=== PATIENT | male | born 1965 | race Caucasian/White ===

== ENCOUNTER 2016-05-12 07:49 | Inpatient (IN) | payer OTHER ==
--- NOTE | ~2016-05-12 | CN ---
Consultation Report [facility] [address] [place]. [address] NAME: JAYANT BRADFORD : 67 STATUS : ADM IN PAT#: [id number] AGE: 51 ADM/REG DATE : 05/12/16 MR#: [id number] REPORT SERV DATE: 05/13/16 DICTATED BY: MAU NOWAK DATE: 05/13/16 REPORT STATUS : Draft TRANSCRIBED BY: MODL DATE: 05/13/16 GENERAL SURGERY CONSULT H AND P DATE OF CONSULTATION: 05/12/2016 CHIEF COMPLAINT: GI bleed. HISTORY OF PRESENT ILLNESS: This is a 51-year-old male, who presented today with significant left neck and shoulder pain, and he was also noted by his to have a large bloody bowel movement this morning. The patient underwent a cardiac cath, which was negative. The patient then was consulted and admitted by Medicine for having abnormal liver enzymes and painless jaundice. In cardiac short stay, the patient was noted have a questionable syncopal or seizure episode and found to be postictal and/or altered mental status and hypotensive. He was transferred to the unit. He then began having hematemesis. He was RSI'd secondary to failure to protect airway. GI was consulted and at the time of my presentation, the patient was undergoing the EGD, there was large amount of blood that was seen in the stomach, no clear visualization seemed to be obtained secondary to the large amount of blood and blood clots. CT scan was reviewed and what appeared to be a necrotic pancreatic mass was seen. A CT scan was obtained today with a fistula into the stomach and believed this to be the source of the bleeding. The patient had already received six units of packed red blood cells and is on maximum Levophed and on vasopressin. Of note, looking at the chart back in November, the patient had an MRI and the pancreatic mass is visualized in the body of the pancreas at that time, but it did not appear necrotic. I spoke with the team at bedside to get the history therefore the history is obtained from the chart and from nurses' report and later confirmed by talking with the , mother, and daughter. ALLERGIES: CLARITIN. PAST MEDICAL HISTORY: 1. CVA in 2014 with no significant deficits. 2. DVT in the right lower extremity. 3. Right Achilles tendon rupture. 4. Diabetes. 5. Obstructive sleep apnea. 6. Obesity. 7. Insomnia. 8. Hypertension. 9. Hyperlipidemia. PAST SURGICAL HISTORY: None. SOCIAL HISTORY: No alcohol. No tobacco. No drugs. 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 and lives at home with his . Consultation Report [facility] [address] [place]. [address] NAME: JAYANT BRADFORD : 67 STATUS : ADM IN PAT#: [id number] AGE: 51 ADM/REG DATE : 05/12/16 MR#: [id number] REPORT SERV DATE: 05/13/16 DICTATED BY: MAU NOWAK DATE: 05/13/16 REPORT STATUS : Draft TRANSCRIBED BY: TIM DATE: 05/13/16 FAMILY HISTORY: Significant for coronary artery disease, diabetes. No cancer as mentioned. MEDICATIONS: See MAR. Does include antiplatelet therapy with aspirin. PHYSICAL EXAMINATION: Limited secondary to the patient undergoing procedure at that time. VITAL SIGNS: Temperature 98.0, pulse 70s, blood pressure again on Levophed and vasopressin 80s over 50s, respiratory rate on ventilator 24, and O2 saturations 100% on ventilator. GENERAL: Well-developed, well-nourished, morbidly obese, sedated and intubated white male, appears stated age. GI: Stomach is distended and firm to palpation in left upper quadrant secondary to what I believe is a palpable enlarged stomach, but is soft. NEUROLOGIC: The patient is nonresponsive at this time. LABORATORY DATA: CBC: White blood cell count is 7.2, hematocrit 20.2, platelets of 324. INR 1.4, PTT 28.4. Sodium 138, potassium 4.1, chloride 104, bicarb 27, BUN 12, creatinine 0.99, glucose 157, calcium 8.7, albumin 3.1, total bilirubin 7.1, alkaline phosphatase 565, ALT 265, AST 155. Troponin [place]. CA[place]-9 [place] [address].5. Lactate 6.7. Cortisol 47.7. ABG, pH 7.16, pCO2 of 35, PO2 of , bicarb 12.3, base deficit -15, O2 sats 99% on the ventilator. A CT scan as mentioned in HPI. ASSESSMENT AND PLAN: 1. This is a 51-year-old male with a GI bleed secondary to what was believed to be a pancreatic mass. The patient is in hemorrhagic shock at this time. I spoke with the critical care team at bedside and have recommended that the patient be taken to IR for possible embolization. If embolization is not possible, then we will proceed to the operating room for exploratory laparotomy with procedures indicated to control bleeding. 2. I spoke extensively with mom, [id number], , and daughter the patient's current medical condition and the plan of care that has been laid out. I expressed that the patient has an extremely poor prognosis in light of being in hemorrhagic shock and the nature of where the bleed is coming from. Even with controlling the bleeding source at this time, the patient still has a poor prognosis secondary to the root cause of it being his pancreatic mass is undefined at this time. The risks, benefits, and alternatives were explained to the patient's family. They expressed clear verbal understanding and wished us to proceed forward with aggressive medical care. DICTATED BY: MD TINAA Malcolm/TIM Mau Nowak M.D. Consultation Report [address] [address] NAME: JAYANT BRADFORD : 67 STATUS : ADM IN [facility]#: [id number] AGE: 51 ADM/REG DATE : 05/12/16 MR#: [id number] REPORT SERV DATE: 05/13/16 DICTATED BY: MAU NOWAK DATE: 05/13/16 REPORT STATUS : Draft TRANSCRIBED BY: TIM DATE: 05/13/16 / [id number] CC: Dion Jang M.D.
--- NOTE | ~2016-05-12 | OP ---
Record Of Operation [facility] [address] [address] NAME: JAYANT BRADFORD : 67 STATUS : ADM IN [facility]#: [id number] AGE: 51 ADM/REG DATE : 05/12/16 MR#: [id number] REPORT SERV DATE: 05/12/16 DICTATED BY: ELISA HANSEN DATE: 05/12/16 REPORT STATUS : Draft TRANSCRIBED BY: MODL DATE: 05/12/16 DATE OF PROCEDURE: 05/12/2016 PROCEDURE: Intubation. REASON: Hematemesis. The patient needs intubation for airway protection in preparation for EGD. The patient was pre-oxygenated with 100% oxygen. DESCRIPTION OF PROCEDURE: 20 mg of IV etomidate were given with 130 mg of IV succinylcholine. GlideScope was used for intubation. Vocal cords were somewhat difficult to visualize secondary to copious amount of blood in the posterior pharynx. The patient actually was successfully intubated on the first attempt with an #8 endotracheal tube. CO2 sensor changed appropriate color from blue to yellow and chest x-ray confirmed good placement of the endotracheal tube. /TIM Elisa Hansen M.D. / [id number] CC: Dion Jang M.D.
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
--- NOTE | ~2016-05-12 | DS ---
Discharge Summary [facility] [address] [place]. [address] NAME: JAYANT BRADFORD : 67 STATUS : DIS IN PAT#: [id number] AGE: 51 ADM/REG DATE : 05/12/16 MR#: [id number] REPORT SERV DATE: 06/16/16 DICTATED BY: JAYANT LOPEZ DATE: 06/16/16 REPORT STATUS : Draft TRANSCRIBED BY: MODCris DATE: 06/16/16 ADMISSION DATE: 05/12/2016 DISCHARGE DATE: 05/14/2016 SUMMARY DATE OF : 05/14/2016. DIAGNOSES: 1. Hemorrhagic shock. 2. GI bleed. 3. Pancreatic mass with splenic artery erosion. 4. Lactic acidosis. 5. Acute renal failure. 6. Shock liver. 7. Acute hypoxic respiratory failure. Please see dictated H and P as well as multiple consult notes and progress notes for full patient presentation, history, and hospital course. BRIEF SUMMARY: The patient was a 51-year-old gentleman who initially was admitted with abdominal pain and thought to have ST-elevation myocardial infarction. He underwent cardiac catheterization with clean coronary arteries. Post catheterization, he became unstable and had abdominal CT scan, which showed a large pancreatic mass and he had evidence of GI bleeding. Endoscopy was performed, which again showed pancreatic mass with erosion into the splenic artery. Following stabilization in the ICU, his two-day hospital course was complicated by progressive hemorrhagic shock, lactic acidosis, acute renal failure requiring dialysis, and support with multiple vasopressors as well as intubation for respiratory failure. Given how ill the patient was and his unlikelihood to recover from this acute illness, his family decided to make him a do not resuscitate and remove him from dialysis. They also understood that he likely had a terminal cancer with a new pancreatic mass and this helped play a role in their decision to make him a do not resuscitate. He was made a do not resuscitate on the and later that day, . Family was at bedside grieving appropriately. BETSY/TIM Jayant Lopez MD / [id number] CC: Tammie Steciw, M.D. Discharge Summary [facility] [address] [place]. [address] NAME: JAYANT BRADFORD : 67 STATUS : DIS IN PAT#: [id number] AGE: 51 ADM/REG DATE : 05/12/16 MR#: [id number] REPORT SERV DATE: 06/16/16 DICTATED BY: JAYANT LOPEZ DATE: 06/16/16 REPORT STATUS : Draft TRANSCRIBED BY: MODL DATE: 06/16/16 Daryn Chino Jr.O.
--- NOTE | ~2016-05-12 | CN ---
Consultation Report [facility] [address] [place]. [address] NAME: JAYANT BRADFORD : 67 STATUS : ADM IN PAT#: [id number] AGE: 51 ADM/REG DATE : 05/12/16 MR#: [id number] REPORT SERV DATE: 05/13/16 DICTATED BY: EDILMA SHRESTHA DATE: 05/13/16 REPORT STATUS : Draft TRANSCRIBED BY: MODL DATE: 05/13/16 NEPHROLOGY CONSULTATION DATE OF CONSULTATION: 05/13/2016 REQUESTING PHYSICIAN: Dr. Rush. REASON FOR CONSULTATION: Acute kidney injury. HISTORY OF PRESENT ILLNESS: Mr. Bradford is a 51-year-old white male, who came in yesterday with complaints of shoulder pain. Creatinine was 1.0 on presentation. He underwent an extensive workup in the last 24 hours. He originally went to the medical lab tech instructor, which showed no coronary disease. He developed an upper GI bleed, which was attempted to be scoped, but was inadequate due to ongoing bleeding. He was eventually found to have an eroding pancreatic mass into the splenic artery and is postop day one coil and embolization by Interventional Radiology. He is presently in the CCU on two pressors and is status post eight units of packed red blood cells, four units of FFP, and a six pack of platelets. Today, his creatinine is up to 2.0. He has had 8425 mL of intake with only 550 mL of urine output. He has an ALT of 1353, AST of 2454, and a CA19-9 of 19,182. PAST MEDICAL HISTORY: 1. Hypertension. 2. Hyperlipidemia. 3. Hypothyroidism. 4. History of DVT with an embolic stroke per chart. MEDICATIONS: At home, aspirin, CoQ10, levothyroxine 100 mcg daily, Mobic p.r.n., multivitamin, Percocet, Crestor 10 mg h.s., Diovan 160 mg daily, and HCT 12.5 mg daily. Here in the hospital, he is on Levophed at 12 mcg and vasopressin at 0.4 mcg. FAMILY HISTORY: Could not be obtained due to the patient's current condition. SOCIAL HISTORY: Could not be obtained due to the patient's current condition. REVIEW OF SYSTEMS: Could not be obtained due to the patient's current condition. PHYSICAL EXAMINATION: VITAL SIGNS: Temperature 100, pulse 93, respirations 18, blood pressure 113/53, and 96% saturation on 40% FiO2. GENERAL: He is a critically ill, middle-aged white male, who is sedated on the ventilator with two pressors. He has bright red blood in the NG tube. HEENT: Sclerae without icterus. Conjunctivae not injected. NECK: No JVD. Consultation Report [address] [place]. [address] NAME: JAYANT BRADFORD : 67 STATUS : ADM IN [facility]#: [id number] AGE: 51 ADM/REG DATE : 05/12/16 MR#: [id number] REPORT SERV DATE: 05/13/16 DICTATED BY: EDILMA SHRESTHA DATE: 05/13/16 REPORT STATUS : Draft TRANSCRIBED BY: TIM DATE: 05/13/16 LUNGS: He has diffuse bilateral rhonchi without dyspnea or tachypnea. CARDIAC: Regular rate and rhythm. No rub. ABDOMEN: Obese, soft, distended. EXTREMITIES: Without edema. SKIN: Without rash. He has minimal dark brown urine in the Hodges catheter. NEURO: Deferred. LABORATORY DATA: Sodium 147, potassium 4.7, bicarb 19, anion gap 17, BUN 20, creatinine 2, calcium 7.2, magnesium 1.9, phosphorus 4.6, albumin 2.4, bilirubin 6.0, GFR 38 mL/minute, ALT 1353, AST 2454, ionized calcium 4.10, lactate 6.7. ABG, pH 7.35, PaCO2 of 34, PaO2 of 93. White count 23,600; hemoglobin 10.3; platelets 229,000. No eosinophils on the differential. ASSESSMENT AND PLAN: Mr. Bradford has developed acute kidney injury, which is borderline oliguric in the setting of acute blood loss anemia, shock, anion gap metabolic acidosis, hyperkalemia, anemia, leukocytosis, pancreatic mass with erosion into the splenic artery, postop day one embolization and coiling, respiratory failure, lactic acidosis, elevated CA19 9, and possible DIC. He is presently on two pressors and almost certainly has developed acute tubular necrosis secondary to renal hypoperfusion due to shock physiology. Called the patient's and discussed with her over the phone the need for initiation of CRRT today. She agrees and we will proceed with Vas-Cath placement per Surgery and initiation of continuous renal replacement therapy without citrate because of his elevated LFTs. Dose albumin and hold Mobic and ARB. We will watch for recovery and continue supportive care through the weekend. Thank you for consult. NC/MODL Edilma Shrestha M.D. / [id number] CC: Dion Jang M.D.
--- NOTE | ~2016-05-12 | OP ---
Record Of Operation [facility] [address] [place]. [address] NAME: JAYANT BRADFORD : 67 STATUS : ADM IN [facility]#: [id number] AGE: 51 ADM/REG DATE : 05/12/16 MR#: [id number] REPORT SERV DATE: 05/12/16 DICTATED BY: ÓSCAR CHAMPION DATE: 05/12/16 REPORT STATUS : Draft TRANSCRIBED BY: MODL DATE: 05/12/16 DATE OF PROCEDURE: 05/12/2016 PROCEDURE: EGD that took over one hour. ENDOSCOPIST: Óscar Champion M.D. INDICATION FOR PROCEDURE: The patient is a 51-year-old gentleman, who presents to the hospital with left shoulder pain, thought to might have had an AK. He went to the labor arbitrator, and found that was normal, and he did not get any anticoagulation. After the catheterization, he began to feel sick and threw up bright red blood, he became unresponsive, he became severely hypotensive, and needs an emergent EGD. After obtaining consent from the family, the patient was medicated by Anesthesia. He was already intubated. He was already on Levophed and vasopressin. Then the Olympus GIF-H190 endoscope was passed into the esophagus, where blood and clots were found, these were washed away, and no active bleeding was seen in the esophagus. In the stomach, there was blood and clots in the lower part of the stomach, these were washed away, and no active bleeding was seen. In the duodenum there was some blood and clots, and again these were washed away, and no active bleeding was seen. In the upper part of the stomach, there was a huge clot, and active bright red blood was seen coming from beneath the clots. The clots were attempted to be moved, but after multiple attempts, the site of bleeding could not be found. He continued to have blood coming from the stomach, and Surgery was called, and they requested the Interventional Radiology to do an angiogram, and if they could not stop the bleeding, then they would take him to surgery. The procedure was then terminated. IMPRESSION: The patient has a large clot with blood coming from beneath the clot in the upper stomach. It looks like there may be a mass in the upper stomach underneath the clot, but good look could not be gotten. The bleeding was coming from beneath the large clot in the upper part of the stomach. RECOMMENDATIONS: 1. Follow hemoglobin and hematocrit, transfuse as needed. 2. Proceed to the Interventional Radiology for angiogram. 3. If that is not successful, then he will have surgery to try and stop the bleeding. CONOR/TIM Óscar Champion M.D. / [id number] CC: Dion Jang M.D.
--- NOTE | ~2016-05-12 | CN ---
Consultation Report [facility] [address] [place]. [address] NAME: JAYANT BRADFORD : 67 STATUS : ADM IN PAT#: [id number] AGE: 51 ADM/REG DATE : 05/12/16 MR#: [id number] REPORT SERV DATE: 05/12/16 DICTATED BY: ÓSACR CHAMPION DATE: 05/12/16 REPORT STATUS : Draft TRANSCRIBED BY: MODL DATE: 05/12/16 EMERGENCY CONSULT DATE OF CONSULTATION: 05/12/2016 HISTORY OF PRESENT ILLNESS: The patient is a 51-year-old gentleman who was originally admitted to the hospital earlier today when he began to have severe left shoulder pain which was going up into his neck and down his arm. 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 It was painless, and at that time, he denied any nausea or vomiting. He denied any abdominal pain. He had been noticing his urine getting dark over the last week and was sent to have an evaluation by Dr. Encinas and a scan done, and he was told he had a fatty liver. He had recently injured his shoulders and had twin rotator cuff tears and he was to see Orthopedic Surgery today. However, after the cardiac catheterization, he began to have nausea and then vomiting with hematemesis with clots. He became severely hypotensive and a rapid response was called. He then began to have melena, and by the time of my arrival, he had already been intubated and given 2 units of blood and started on Levophed and vasopressin and his systolic blood pressure was still in the 70s. 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 MEDICATIONS: As outlined on his home medicine sheet and MAR. 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 FAMILY HISTORY: Cannot be gotten by the patient and per the H and P from Dr. Jang, it was noncontributory. REVIEW OF SYSTEMS: Cannot be gotten because he is intubated and sedated. PHYSICAL EXAMINATION: GENERAL: He is a well-developed, well-nourished gentleman, intubated. VITAL SIGNS: Had a temperature of 98.0. His pulse was 98, respirations were 16, and his blood pressure had a systolic of about 70/40. LUNGS: Sounded clear. HEART: Regular rate and rhythm. ABDOMEN: Showed normal bowel sounds. There appeared to be a very hard mass over the upper abdomen. LABORATORY DATA: His hemoglobin was about 6. His sodium was 137, potassium 4.6, and glucose 202. His CBC just prior to the endoscopy, his white count was 7.2, hemoglobin 6.5 down from 10.4 earlier in the morning, earlier in the day hematocrit of 20.2 down from 33.1, MCV 86.7, Consultation Report [place] [id number] [facility] [place]. [address] NAME: JAYANT BRADFORD : 67 STATUS : ADM IN [facility]#: [id number] AGE: 51 ADM/REG DATE : 05/12/16 MR#: [id number] REPORT SERV DATE: 05/12/16 DICTATED BY: ÓSCAR CHAMPION DATE: 05/12/16 REPORT STATUS : Draft TRANSCRIBED BY: MODL DATE: 05/12/16 RDW 14.2, and platelet count of 324,000. ProTime was 17.1 with an INR of 1.4 and PTT was 28.4, both normal. D-dimer was mildly high at 0.57. His sodium from 9 o'clock this morning had a sodium of 138, potassium 4.1, chloride 104, CO2 of 27, BUN 12, creatinine 0.99, glucose 157, calcium 8.7. Total protein 86.4, albumin was 3.1, his total bilirubin was 7.1 with a direct of 5.4, indirect 1.7, alkaline phosphatase of 565, ALT 265, AST 155. CPK of 84, CK-MB less than 0.5. Troponin less than 0.02. CA-19-9 was 91073.5 which is markedly high. He did have a CT scan of the abdomen which revealed no suspicious focal abnormality within the liver and no intrahepatic ductal dilatation. Gallbladder is not well-defined. No calcified stones were seen. The stomach is markedly dilated containing large amount of fluid and areas of gas. Hemorrhagic fluid within the gastric lumen could not be excluded and the stomach could not be adequately distinguished from the adjacent pancreatic tail suggesting a possible abnormality eroding between the pancreas and stomach. The mass within the pancreas on a prior MRI exam, 12/24/2015, cannot be distinguished on this noncontrast CT scan, and there was a mild dilation of the common bile duct. IMPRESSION: This is a 51-year-old gentleman who is now having severe hematemesis and severe upper gastrointestinal bleeding, needs an emergent EGD which will be done now. CONOR/TIM Óscar Champion M.D. / [id number] CC: Dion Jang M.D.
--- NOTE | ~2016-05-12 | HP ---
History And Physical [place] [id number] [place]. [address] NAME: JAYANT BRADFORD : 67 STATUS : ADM IN PAT#: [id number] AGE: 51 ADM/REG DATE : 05/12/16 MR#: [id number] REPORT SERV DATE: 05/12/16 DICTATED BY: DION JANG DATE: 05/12/16 REPORT STATUS : Draft TRANSCRIBED BY: MODL DATE: 05/12/16 DATE OF ADMISSION: 05/12/2016 CRITICAL CARE RESUSCITATION NOTE Rapid response called by nursing staff in cardiac short-stay and I was notified. I arrived at the patient's bedside and found the patient writhing in pain, complaining of left upper quadrant and epigastric pain. He then became very sick and he became very diaphoretic. He became incontinent of urine, and the nurse told me that prior to that he was incontinent of urine and had a staring spell up in the ceiling. This patient could not find a comfortable spot to lay, and we began resuscitate efforts first checking his EKG. His blood pressure was significantly low systolic of around 59 aggressive fluid resuscitation with wide open fluid boluses were done. IV accesses were done. Rapid response team arrived. An I-STAT blood was obtained at that time. On the I-STAT, his pH was 7.36, his pCO2 was in the 40s, his pO2 was 93. He had a bicarb of 13. His sodium and potassium were normal. His hemoglobin had dropped to 8.2, which was 10 prior to that. At that time. Since he was having significant pain, we decided that the patient needed to be moved to the Intensive Care Unit. I called Dr. Tammie Hansen, and Jacobo, Dr. Hansen's nurse, arrived at the bedside. I discussed his care with him, and we decided that he would go to stat CT scan of the abdomen and pelvis. After the stat CT scan of the abdomen and pelvis, the patient was transferred to critical care unit. I reviewed the CT of the abdomen and pelvis and found that there was significant hematogenous collection in the stomach with pancreatic head eroding through the stomach wall. At that time, I once again discussed his care with Jacobo. We had already notified Dr. Baldo Butts . regarding patient's overall condition and then this patient's care was handed off to the customer success director. A total time of about 60 minutes was spent by myself trying to resuscitate this patient and appropriately handing his care over to the customer success director. MAY/TIM Dion Jang M.D. / [id number] CC: Dion Jang M.D. UNKNOWN
--- NOTE | ~2016-05-12 | CN ---
Consultation Report [facility] [address] [place]. [address] NAME: JAYANT BRADFORD : 67 STATUS : ADM IN PAT#: [id number] AGE: 51 ADM/REG DATE : 05/12/16 MR#: [id number] REPORT SERV DATE: 05/12/16 DICTATED BY: ELISA HANSEN DATE: 05/12/16 REPORT STATUS : Draft TRANSCRIBED BY: MODL DATE: 05/12/16 CONSULTATION AND CRITICAL CARE NOTE DATE OF CONSULTATION: 05/12/2016 HISTORY OF PRESENT ILLNESS: This is a 51-year-old patient, I was asked to see by Dr. Jang. The patient presented to the emergency room today complaining of left shoulder pain and has known rotator cuff tear. He was seen by Cardiology and was thought to have a STEMI and taken to the manager cardiac cath. Coronaries were clean. The patient was then supposed to be admitted to the Hospitalist Service, but when Dr. Jang saw the patient in cardiac short-stay, became hypotensive and began complain of excruciating abdominal pain. We were then called to see the patient. The patient required multiple boluses of fluid and finally a pressure was obtaining and was taken for a stat CT scan of the abdomen and pelvis, which showed a distended stomach, and possibly a part of the pancreas that might be eroding into the stomach. The stomach also contained lots of fluid with air thought to possibly be blood. The patient was then taken to the CCU and NG tube was placed, and lot of bright red blood was then suctioned from the stomach by the NG tube. The patient continues to have difficulty with blood pressure and two units of O negative blood was given until the patient could be typed and crossed. IV fluid boluses as well as Albumisol were continued. The patient then was subsequently intubated because of hematemesis and so this was done for airway protection. The patient's then revealed that he did have black and bloody stools on the morning of admission. He had been complaining of left shoulder pain which is a chronic problem for which he has seen orthopedic surgeon. However, he all also was complaining of some abdominal pain and that seems to have been ongoing as well as heartburn. 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 Apparently, this was never followed up. So, currently the patient is in the CCU being evaluated for abdominal pain, as well as markedly increased LFTs, and bilirubin, and marked jaundice, and is in critical condition. ALLERGIES: HE IS ALLERGIC TO CLARITIN. HOME MEDICATIONS: Aspirin, Coenzyme Q10, Synthroid, Mobic, probiotic, Theragran-M, Percocet, Crestor, and Diovan. PAST MEDICAL HISTORY: 1. In addition to as mentioned above. It is significant for a previous stroke in December of 2014, it was an acute left parietal cerebral vascular accident that resulted in some numbness of the right hand that eventually resolved. Right lower extremity superficial thrombophlebitis. History of a tendo-achilles rupture in the right lower extremity for which the patient was treated by Dr. Ginny guaman conservatively. 2. He has a diagnosis of type 2 diabetes mellitus. 3. Obstructive sleep apnea, on CPAP. 4. Obesity. Consultation Report [address] [address] NAME: JAYANT BRADFORD : 67 STATUS : ADM IN [facility]#: [id number] AGE: 51 ADM/REG DATE : 05/12/16 MR#: [id number] REPORT SERV DATE: 05/12/16 DICTATED BY: ELISA HANSEN DATE: 05/12/16 REPORT STATUS : Draft TRANSCRIBED BY: TIM DATE: 05/12/16 5. Insomnia. 6. Hypertension. 7. Hyperlipidemia with hypertriglyceridemia. SOCIAL HISTORY: The patient does not drink alcohol, smoke or use illicit drugs. 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 He is and lives at home with his . FAMILY HISTORY: Significant for coronary artery disease, diabetes, but there is no history of pancreatic or GI cancers. REVIEW OF SYSTEMS: Review of systems was difficult to obtain from the patient, but he denies any weight loss, syncope, blurred vision, diarrhea, decreased appetite, or previous hematemesis. The remainder of a 12-point review of systems is unremarkable. PHYSICAL EXAMINATION: VITAL SIGNS: The patient is obviously jaundiced. His blood pressure ranges from anywhere of 53 systolic to 97 systolic. Respiratory rate is in the high 20s. He is afebrile. Heart rate is 72. GENERAL: The patient is able to move all extremities. SKIN: Cool to touch, but he is not diaphoretic. HEENT: Head is atraumatic and normocephalic. Pupils are equal, round, and reactive to light and accommodation. Extraocular eye movements are intact. Sclerae are icteric. Conjunctivae are pale. Nasal mucosa is within normal limits. Oral mucosa is moist. Tongue is midline. NECK: Supple without JVD, lymphadenopathy, or thyromegaly. RESPIRATORY: Lungs are diminished at the bases with no wheezes. CARDIAC: Reveals a regular rate and rhythm. Tremendous pain on movement of the left shoulder and there is limited range of motion in that arm. ABDOMEN: Actually nondistended and soft. A large liver can be palpated below the right costophrenic angle. There is no significant pain to palpation or rebound. Bowel sounds are present, but diminished. RECTAL/GENITAL: Deferred. EXTREMITIES: Without cyanosis, clubbing, or edema. NEUROLOGIC: Cranial nerves 2 through 12 are grossly intact. Motor and sensory are intact except for limited range of motion in the left arm. LABORATORY AND DIAGNOSTIC DATA: Chest x-ray shows no infiltrates. Most current lab work shows cortisol level 47. Serum drug screen shows an acetaminophen level of 2.8, salicylate is less than 1.7, alcohol less than 10, TSH 1.6, troponin less than 0.02. Amylase 12, lipase 49, AST 112, ALT is 175, alkaline phosphatase 343, total bilirubin is 4.2, magnesium 2.3. Procalcitonin is pending. Lactic acid level 6.7. KUB shows nasogastric tube in the body of the stomach. CBC; white cell count 7.2, hemoglobin 6.5, hematocrit 20, platelet count 324,000. Sodium 138, potassium 4.1, chloride 104, bicarb 27, BUN 12, creatinine 0.99, Consultation Report [address] [address] NAME: JAYANT BRADFORD : 67 STATUS : ADM IN [facility]#: [id number] AGE: 51 ADM/REG DATE : 05/12/16 MR#: [id number] REPORT SERV DATE: 05/12/16 DICTATED BY: ELISA HANSEN DATE: 05/12/16 REPORT STATUS : Draft TRANSCRIBED BY: MODL DATE: 05/12/16 glucose 157. His CA-19-9 is 19,182. EKG did not show any ST-segment elevations or depressions. ASSESSMENT AND PLAN: This is a critically ill 51-year-old, white male, who presents with initially left shoulder pain that then progressed to acute abdominal pain, and now appears to have an erosion of possibly tumor into the stomach, and in acute bleed, and is in hypovolemic hemorrhagic shock. He has required intubation for airway protection and a blood transfusion, volume resuscitation, and pressors. Overall, this patient's diagnosis is extremely guarded. The plan is to continue IV fluid resuscitation. Stabilize the patient. Consult GI Dr. Butts, with whom I have spoken to on the phone, as well as a Dr. Santosh Coates, Surgery. Total time spent with this patient thus far, started at 03:30 p.m. and currently is ongoing at 05:44 p.m. and may very well continue onward, you will need to check my documented note to see exactly how much critical care time will be charged. /JAGUARL Elisa Hansen M.D. / [id number] CC: Dion Jang M.D.
--- NOTE | ~2016-05-12 | OP ---
Record Of Operation [facility] [address] [place]. [address] NAME: JAYANT BRADFORD : 67 STATUS : ADM IN [facility]#: [id number] AGE: 51 ADM/REG DATE : 05/12/16 MR#: [id number] REPORT SERV DATE: 05/13/16 DICTATED BY: SANTOSH JONES JR. DATE: 05/13/16 REPORT STATUS : Draft TRANSCRIBED BY: MODL DATE: 05/13/16 DATE OF PROCEDURE: 05/13/2016 PREOPERATIVE DIAGNOSIS: Acute renal failure. POSTOPERATIVE DIAGNOSIS: Acute renal failure. OPERATION: Left subclavian vein Vas-Cath catheter. SURGEON: Dr. Santosh Jones. HISTORY: This is a 51-year-old white male, admitted to the hospital yesterday with a major GI bleed and hypotension. As a consequence, he shut down his kidneys and his fluid overloaded and needs urgent CRRT. DESCRIPTION OF PROCEDURE: The patient was on a ventilator. The chest was prepped and draped in the usual sterile manner. A long needle was used to find the left subclavian vein underneath the left clavicle. A wire was easily passed. A series of dilators were used to insert a standard Vas-Cath catheter into the left subclavian vein. There was no heinous looking blood easily returned without any hint of arterial pressure. The catheter was irrigated with heparinized saline and sutured in the place. The patient tolerated the procedure well and stayed in his ICU bed in critical condition. There were no intraoperative complications. ESTIMATED BLOOD LOSS: 10 mL. DF/MODL Santosh Jones Jr., M.D. / [id number] CC: Tammie Hansen M.D.
--- NOTE | ~2016-05-12 | PRECARD ---
H&P [facility] [address] [place]. [address] NAME: JAYANT BRADFORD : 67 STATUS : ADM IN [facility]#: [id number] AGE: 51 ADM/REG DATE : 05/12/16 MR#: [id number] REPORT SERV DATE: 05/12/16 DICTATED BY: SARAH CARY DATE: 05/12/16 REPORT STATUS : Draft TRANSCRIBED BY: TIM DATE: 05/12/16 DATE OF ADMISSION: 05/12/2016 HISTORY OF PRESENT ILLNESS: Mr. Jayant Bradford is a 51-year-old gentleman, referred by the emergency room for acute inferior wall myocardial infarction. Mr. Bradford reports a history of stroke. He has a torn rotator cuff on the left shoulder. He awoke this morning with some confusion and discomfort in that left shoulder. He was brought to the emergency room by ambulance. The ambulance team on arrival had done an EKG that demonstrated, perhaps, [address]-elevation in II, III, and aVF with small Q-waves in those leads, the EKG in the emergency room demonstrated normalization. He continues to have left shoulder discomfort that is exacerbated by moving that arm. He does not have marcus chest pain. No orthopnea or PND. No palpitations. The patient reports he was told he had a stroke after a significant blood clot, related to an Achilles tendon tear. I have no records to substantiate that or prior echocardiogram to explain. He does have a history of hypertension. No history of diabetes, hyperlipidemia, or known family history of premature coronary disease. PAST MEDICAL HISTORY: 1. Hypertension. 2. Torn rotator cuff on the left shoulder. 3. Achilles heel rupture previously. 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 MEDICINES: Uncertain. FAMILY HISTORY: No definite family history of premature coronary artery disease. PHYSICAL EXAMINATION: VITAL SIGNS: Blood pressure 130/65. GENERAL: Comfortable, in no acute distress. HEENT: No xanthelasma; lips without cyanosis LUNGS: Clear to auscultation, no wheezes, rales or rhonchi; good breath sounds. COR: No JVD or hepatojugular reflux, no murmurs, rubs or gallops, impulse mid clavicular line without carotid or abdominal bruits; normal S1 and S2. ABDOMEN: Bowel sounds positive, normal activity, without tenderness, masses or hepatosplenomegaly. EXTREMITIES: No edema, cyanosis. SKIN: Normal turgor. MS: Normal muscle strength, without kyphosis/scoliosis. NEURO/PSYCH: Alert and oriented times 4, no apparent anxiety or depression. H&P [address] [address] NAME: JAYANT BRADFORD : 67 STATUS : ADM IN PAT#: [id number] AGE: 51 ADM/REG DATE : 05/12/16 MR#: [id number] REPORT SERV DATE: 05/12/16 DICTATED BY: SARAH CARY DATE: 05/12/16 REPORT STATUS : Draft TRANSCRIBED BY: TIM DATE: 05/12/16 LABORATORY DATA: EKG: Sinus rhythm with nonspecific ST-T wave changes. Prior EKG demonstrated minimal ST-elevation in the inferior leads. ASSESSMENT: Mr. Bradford is a very nice 51-year-old gentleman with left shoulder discomfort. His EKG initially was abnormal. PLAN: I plan to proceed with cardiac catheterization and possible angioplasty. I have discussed the risks, benefits, and alternatives with Mr. Cox. He understands and requests to proceed. LIZBET/TIM Sarah Cary M.D. / [id number]
[~2016-05-12 07:49] MED LIST: ALLEGRA OTC; AMB5 PO; ASAEC PO; CENTRUM TAB1 TAB PO; CINNAMONPO; CO Q-10; FISH OIL; FLONASE NAS; FORTAMET500 MG PO; LOPID6 PO; RED YEAS1 PO; ZESTRIL30 MG PO; ZESTRIL40 MG PO
[2016-05-12] MEDS ORDERED: SYN1 PO (08:01)
[2016-05-12] MEDS ORDERED: PCET PO (08:01)
[2016-05-12] MEDS ORDERED: MOBIC7.5 PO (08:02)
[2016-05-12] MEDS ORDERED: DIOVAN HC1 PO (08:02)
[2016-05-12] MEDS ORDERED: HALF81 PO (08:02)
[2016-05-12] MEDS ORDERED: CRESTOR10 PO (08:02)
[2016-05-12] MEDS ORDERED: THERGRANM PO (08:02)
[2016-05-12] MEDS ORDERED: PROBIOTIC PO (08:03)
[2016-05-12] MEDS ORDERED: CO Q-10100 MG PO (08:03)
[2016-05-12 08:04] LABS: INTERNATIONAL NORMAL RATI 1.1 UNITS (-); PROTIME (NOT ORD) 14.2 SEC (12.0-14.5)
[2016-05-12 08:05] LABS: PARTIAL THROMBO TIME 45.1 SEC (22.5-37.2)
[2016-05-12 08:15] LABS: BUN (BLOOD UREA NITROGEN) 11 MG/DL (6-23); CALCIUM, SERUM 8.6 MG/DL (8.5-10.4); CHEST PAIN PROFILE TAT 0 Hrs 22 Mins; CHLORIDE, SERUM 106 MMOL/L (96-112); CO2 (CARBON DIOXIDE) 22 MMOL/L (24-34); CREATININE 1.07 MG/DL (0.70-1.30); GFR AFRICAN AMERICAN 93 ML/MIN (>=60); GFR NON AFRICAN AMERICAN 81 ML/MIN (>=60); POTASSIUM, SERUM 3.8 MMOL/L (3.5-5.3); SODIUM, SERUM 139 MMOL/L (135-148); TROPONIN I <0.02 NG/ML (<0.05)
[2016-05-12 08:16] LABS: GLUCOSE, SERUM 176 MG/DL (60-99)
[2016-05-12 08:31] LABS: ALBUMIN 3.1 G/DL (3.5-5.0); ALKALINE PHOSPHATASE 552 U/L (45-117); DIRECT BILIRUBIN 4.8 MG/DL (0.0-0.4); INDIRECT BILIRUBIN(NOT ORDER) 1.9 MG/DL (0.1-0.9); SGPT(ALT) 259 U/L (5-65); TOTAL BILIRUBIN 6.7 MG/DL (0-1.2); TOTAL PROTEIN 6.2 G/DL (6.0-8.5)
[2016-05-12 08:32] LABS: SGOT(AST) 158 U/L (5-40)
[2016-05-12 08:45] LABS: CREATININE 0.8 MG/DL (0.70-1.30)
[2016-05-12 09:56] LABS: ALBUMIN 3.1 G/DL (3.5-5.0); BUN (BLOOD UREA NITROGEN) 12 MG/DL (6-23); CALCIUM, SERUM 8.7 MG/DL (8.5-10.4); CHLORIDE, SERUM 104 MMOL/L (96-112); CREATININE 0.99 MG/DL (0.70-1.30); GFR AFRICAN AMERICAN 102 ML/MIN (>=60); GFR NON AFRICAN AMERICAN 88 ML/MIN (>=60); GLUCOSE, SERUM 157 MG/DL (60-99); POTASSIUM, SERUM 4.1 MMOL/L (3.5-5.3); SGOT(AST) 155 U/L (5-40); SGPT(ALT) 265 U/L (5-65); SODIUM, SERUM 138 MMOL/L (135-148); TOTAL BILIRUBIN 7.1 MG/DL (0-1.2); TOTAL PROTEIN 6.4 G/DL (6.0-8.5); TROPONIN I <0.02 NG/ML (<0.05)
[2016-05-12 10:01] LABS: ALKALINE PHOSPHATASE 565 U/L (45-117); CK-MB < 0.5 NG/ML; CO2 (CARBON DIOXIDE) 27 MMOL/L (24-34); CPK 84 U/L (0-200); DIRECT BILIRUBIN 5.4 MG/DL (0.0-0.4); INDIRECT BILIRUBIN(NOT ORDER) 1.7 MG/DL (0.1-0.9)
[2016-05-12 10:43] LABS: BASOPHILS 0.4 %; BASOPHILS ABSOLUTE 0.04 10/3/uL (0.0-0.16); EOSINOPHILS 1.5 %; EOSINOPHILS ABSOLUTE 0.15 10/3/uL (0.0-0.53); ER CBC TAT 2 Hrs 50 Mins; IMMATURE GRANULOCYTES 0.3 %; IMMATURE GRANULOCYTES ABSOLUTE 0.03 10/3/uL (0.0-0.11); LYMPHOCYTES 41.1 %; LYMPHOCYTES ABSOLUTE 3.99 10/3/uL (0.67-4.30); MEAN CORPUSCULAR HEMOGLOB 26.9 pg (26.0-34.0); MEAN CORPUSCULAR VOLUME 85.8 fL (80-100); MEAN PLATELET VOLUME 10.4 fL (9.2-13.0); MONOCYTES 12.5 %; MONOCYTES ABSOLUTE 1.21 10/3/uL (0.21-1.20); NEUTROPHILS 44.2 %; NEUTROPHILS ABSOLUTE 4.28 10/3/uL (2.02-8.40); WHITE BLOOD CELLS 9.7 10/3/uL (4.5-10.5)
[2016-05-12 10:46] LABS: HEMATOCRIT 33.1 % (40.0-51.0); HEMOGLOBIN 10.4 g/dL (13.6-17.8); MANUAL DIFF NO %; MEAN CORPUS HGB CONC 31.4 g/dL (32.0-36.0); PLATELET COUNT 380 10/3/uL (150-400); RED CELL COUNT 3.86 10/6/uL (4.7-6.1)
[2016-05-12 17:02] LABS: BASOPHILS 0.1 %; BASOPHILS ABSOLUTE 0.01 10/3/uL (0.0-0.16); EOSINOPHILS 0.1 %; EOSINOPHILS ABSOLUTE 0.01 10/3/uL (0.0-0.53); IMMATURE GRANULOCYTES 0.4 %; IMMATURE GRANULOCYTES ABSOLUTE 0.03 10/3/uL (0.0-0.11); LYMPHOCYTES ABSOLUTE 2.68 10/3/uL (0.67-4.30); MEAN CORPUS HGB CONC 32.2 g/dL (32.0-36.0); MEAN CORPUSCULAR HEMOGLOB 27.9 pg (26.0-34.0); MEAN CORPUSCULAR VOLUME 86.7 fL (80-100); MEAN PLATELET VOLUME 9.6 fL (9.2-13.0); MONOCYTES 10.8 %; MONOCYTES ABSOLUTE 0.78 10/3/uL (0.21-1.20); NEUTROPHILS 51.6 %; NEUTROPHILS ABSOLUTE 3.73 10/3/uL (2.02-8.40); PLATELET COUNT 324 10/3/uL (150-400); RBC DISTRIBUTION WIDTH 14.2 % (12.0-16.0); WHITE BLOOD CELLS 7.2 10/3/uL (4.5-10.5)
[2016-05-12 17:03] LABS: HEMATOCRIT 20.2 % (40.0-51.0); HEMOGLOBIN 6.5 g/dL (13.6-17.8); RED CELL COUNT 2.33 10/6/uL (4.7-6.1)
[2016-05-12 17:05] LABS: MANUAL DIFF NO %
[2016-05-12 17:08] LABS: CA-19-9 19182.5 U/ML (< 37.0)
[2016-05-12 17:10] LABS: INTERNATIONAL NORMAL RATI 1.4 UNITS (-); PARTIAL THROMBO TIME 28.4 SEC (22.5-37.2)
[2016-05-12 17:12] LABS: D-DIMER QUANTITATIVE 0.57 ug/mLFEU (< 0.50)
[2016-05-12 17:13] LABS: PROTIME (NOT ORD) 17.1 SEC (12.0-14.5)
[2016-05-12 17:28] LABS: SGOT(AST) 112 U/L (5-40); SGPT(ALT) 175 U/L (5-65); TROPONIN I <0.02 NG/ML (<0.05)
[2016-05-12 17:29] LABS: ALBUMIN 2.2 G/DL (3.5-5.0); ALCOHOL < 10 MG/DL (0); ALKALINE PHOSPHATASE 343 U/L (45-117); CK-MB < 0.5 NG/ML; CPK 45 U/L (0-200); INDIRECT BILIRUBIN(NOT ORDER) 1.2 MG/DL (0.1-0.9); TOTAL BILIRUBIN 4.2 MG/DL (0-1.2); TOTAL PROTEIN 4.5 G/DL (6.0-8.5)
[2016-05-12 17:30] LABS: ACETAMINOPHEN LEVEL (TYLENOL) 2.8 MCG/ML (10.0-20.0); SALICYLATE < 1.7 MG/DL (-)
[2016-05-12 19:01] LABS: BE (BASE EXCESS) -15.1 MEQ/L (0 +/- 2.5); CARBOXYHEMOGLOBIN 0.3 % (0-3); HCO3 (ACTUAL BICARBONATE) 12.3 MEQ/L (23-27); HEMOBLOGIN CONTENT 7.9 G/DL (14-18); INSTRUMENT SERIAL # 35151; METHEMOGLOBIN 1.2 % (0-3); MODE CMV; O2 CONTENT 12.1 VOL% (18-24); PCO2 (CO2 TENSION) 35 MMHG (35-45); PO2 (O2 TENSION) 447 MMHG (79-93); SAMPLE Arterial; pH 7.16 (7.37-7.43)
[2016-05-12 19:02] LABS: ALLENS TEST Pos; TIDAL VOLUME 500 ML
[2016-05-12 21:43] LABS: BASOPHILS 0.1 %; BASOPHILS ABSOLUTE 0.02 10/3/uL (0.0-0.16); EOSINOPHILS 0 %; HEMATOCRIT 34.8 % (40.0-51.0); HEMOGLOBIN 11.3 g/dL (13.6-17.8); IMMATURE GRANULOCYTES 0.8 %; IMMATURE GRANULOCYTES ABSOLUTE 0.17 10/3/uL (0.0-0.11); LYMPHOCYTES ABSOLUTE 1.56 10/3/uL (0.67-4.30); MEAN CORPUS HGB CONC 32.5 g/dL (32.0-36.0); MEAN CORPUSCULAR HEMOGLOB 27.8 pg (26.0-34.0); MEAN CORPUSCULAR VOLUME 85.7 fL (80-100); MEAN PLATELET VOLUME 10.1 fL (9.2-13.0); MONOCYTES ABSOLUTE 2.91 10/3/uL (0.21-1.20); NEUTROPHILS 79.1 %; NEUTROPHILS ABSOLUTE 17.74 10/3/uL (2.02-8.40); PLATELET COUNT 170 10/3/uL (150-400); RBC DISTRIBUTION WIDTH 14.9 % (12.0-16.0); RED CELL COUNT 4.06 10/6/uL (4.7-6.1); WHITE BLOOD CELLS 22.4 10/3/uL (4.5-10.5)
[2016-05-12 21:44] LABS: MANUAL DIFF NO %
[2016-05-12 21:51] LABS: INTERNATIONAL NORMAL RATI 1.8 UNITS (-); PARTIAL THROMBO TIME 39.4 SEC (22.5-37.2); PROTIME (NOT ORD) 20.3 SEC (12.0-14.5)
[2016-05-12 22:24] LABS: A/G RATIO 0.9 (0.7-1.9); ALBUMIN 1.8 G/DL (3.5-5.0); ALKALINE PHOSPHATASE 293 U/L (45-117); BUN (BLOOD UREA NITROGEN) 16 MG/DL (6-23); CALCIUM, SERUM 6.7 MG/DL (8.5-10.4); CHLORIDE, SERUM 113 MMOL/L (96-112); CO2 (CARBON DIOXIDE) 18 MMOL/L (24-34); DIRECT BILIRUBIN 4.1 MG/DL (0.0-0.4); GFR AFRICAN AMERICAN 74 ML/MIN (>=60); GFR NON AFRICAN AMERICAN 64 ML/MIN (>=60); GLOBULIN 1.9 G/DL (2.5-4.1); GLUCOSE, SERUM 202 MG/DL (60-99); INDIRECT BILIRUBIN(NOT ORDER) 1.4 MG/DL (0.1-0.9); PHOSPHORUS, SERUM 5.3 MG/DL (2.5-4.5); SGOT(AST) 1248 U/L (5-40); SGPT(ALT) 751 U/L (5-65); SODIUM, SERUM 142 MMOL/L (135-148); TOTAL BILIRUBIN 5.5 MG/DL (0-1.2); TOTAL PROTEIN 3.7 G/DL (6.0-8.5)
[2016-05-12 22:27] LABS: POTASSIUM, SERUM 6.9 MMOL/L (3.5-5.3)
[2016-05-13 01:06] LABS: HEMATOCRIT 32.9 % (40.0-51.0); HEMOGLOBIN 11.1 g/dL (13.6-17.8)
[2016-05-13 01:28] LABS: A/G RATIO 1.1 (0.7-1.9); ALKALINE PHOSPHATASE 274 U/L (45-117); BUN (BLOOD UREA NITROGEN) 18 MG/DL (6-23); CALCIUM, SERUM 6.8 MG/DL (8.5-10.4); CHLORIDE, SERUM 111 MMOL/L (96-112); CK-MB 1.7 NG/ML; CO2 (CARBON DIOXIDE) 21 MMOL/L (24-34); CPK 107 U/L (0-200); CREATININE 1.48 MG/DL (0.70-1.30); GFR AFRICAN AMERICAN 63 ML/MIN (>=60); GFR NON AFRICAN AMERICAN 54 ML/MIN (>=60); GLOBULIN 1.8 G/DL (2.5-4.1); GLUCOSE, SERUM 181 MG/DL (60-99); SGOT(AST) 1815 U/L (5-40); SGPT(ALT) 1032 U/L (5-65); SODIUM, SERUM 145 MMOL/L (135-148); TOTAL BILIRUBIN 5.9 MG/DL (0-1.2); TOTAL PROTEIN 3.8 G/DL (6.0-8.5)
[2016-05-13 01:29] LABS: TROPONIN I 0.18 NG/ML (<0.05)
[2016-05-13 04:02] LABS: BE (BASE EXCESS) -6.7 MEQ/L (0 +/- 2.5); CARBOXYHEMOGLOBIN 0.3 % (0-3); HCO3 (ACTUAL BICARBONATE) 18.1 MEQ/L (23-27); HEMOBLOGIN CONTENT 11.2 G/DL (14-18); INSTRUMENT SERIAL # 35151; METHEMOGLOBIN 0.6 % (0-3); MODE CMV; O2 CONTENT 15.2 VOL% (18-24); OPERATOR ID 23712; PCO2 (CO2 TENSION) 34 MMHG (35-45); PO2 (O2 TENSION) 93 MMHG (79-93); SAMPLE Arterial; TIDAL VOLUME 500 ML; pH 7.35 (7.37-7.43)
[2016-05-13 05:25] LABS: BASOPHILS 0.1 %; BASOPHILS ABSOLUTE 0.02 10/3/uL (0.0-0.16); EOSINOPHILS 0 %; HEMATOCRIT 30.9 % (40.0-51.0); HEMOGLOBIN 10.3 g/dL (13.6-17.8); IMMATURE GRANULOCYTES 0.5 %; IMMATURE GRANULOCYTES ABSOLUTE 0.11 10/3/uL (0.0-0.11); LYMPHOCYTES 10.1 %; LYMPHOCYTES ABSOLUTE 2.39 10/3/uL (0.67-4.30); MEAN CORPUS HGB CONC 33.3 g/dL (32.0-36.0); MEAN CORPUSCULAR HEMOGLOB 28.2 pg (26.0-34.0); MEAN CORPUSCULAR VOLUME 84.7 fL (80-100); MONOCYTES 8.6 %; MONOCYTES ABSOLUTE 2.04 10/3/uL (0.21-1.20); NEUTROPHILS 80.7 %; NEUTROPHILS ABSOLUTE 19.06 10/3/uL (2.02-8.40); RBC DISTRIBUTION WIDTH 15.4 % (12.0-16.0); RED CELL COUNT 3.65 10/6/uL (4.7-6.1); WHITE BLOOD CELLS 23.6 10/3/uL (4.5-10.5)
[2016-05-13 05:30] LABS: MANUAL DIFF NO %; PLATELET COUNT 229 10/3/uL (150-400)
[2016-05-13 05:35] LABS: INTERNATIONAL NORMAL RATI 1.7 UNITS (-)
[2016-05-13 05:36] LABS: FIBRINOGEN 177 MG/DL (230-462); PARTIAL THROMBO TIME 34.6 SEC (22.5-37.2)
[2016-05-13 05:38] LABS: D-DIMER QUANTITATIVE 3.44 ug/mLFEU (< 0.50)
[2016-05-13 05:52] LABS: A/G RATIO 1.2 (0.7-1.9); ALBUMIN 2.4 G/DL (3.5-5.0); BUN (BLOOD UREA NITROGEN) 20 MG/DL (6-23); CALCIUM, SERUM 7.2 MG/DL (8.5-10.4); CHLORIDE, SERUM 111 MMOL/L (96-112); CO2 (CARBON DIOXIDE) 19 MMOL/L (24-34); PHOSPHORUS, SERUM 4.6 MG/DL (2.5-4.5); SGOT(AST) 2454 U/L (5-40); SGPT(ALT) 1353 U/L (5-65); SODIUM, SERUM 147 MMOL/L (135-148); TOTAL PROTEIN 4.4 G/DL (6.0-8.5)
[2016-05-13 05:54] LABS: ALKALINE PHOSPHATASE 286 U/L (45-117); DIRECT BILIRUBIN 4.3 MG/DL (0.0-0.4); GFR AFRICAN AMERICAN 44 ML/MIN (>=60); GFR NON AFRICAN AMERICAN 38 ML/MIN (>=60); GLUCOSE, SERUM 127 MG/DL (60-99); INDIRECT BILIRUBIN(NOT ORDER) 1.7 MG/DL (0.1-0.9); POTASSIUM, SERUM 4.7 MMOL/L (3.5-5.3)
[2016-05-13 07:03] LABS: CREATININE (RANDOM URINE) 66.8 MG/DL; CREATININE, URINE 66.8 MG/DL; MICROALBUMIN, RANDOM URINE 7.6 MG/DL
[2016-05-13 08:43] LABS: HEMATOCRIT 28.4 % (40.0-51.0); HEMOGLOBIN 9.9 g/dL (13.6-17.8)
[2016-05-13 09:02] LABS: HEPATITIS B SURFACE ANTIGEN NON-REACTIVE (NON-REACT)
[2016-05-13 09:12] LABS: HEPATITIS B CORE AB IGM NON-REACTIVE (NON-REAC); HEPATITIS C ANTIBODY NON-REACTIVE (NON-REACT)
[2016-05-13 09:13] LABS: HIV COMBO NON-REACTIVE (NON REAC)
[2016-05-13 09:14] LABS: HEP A ANTIBODY IGM NON-REACTIVE (NON-REACT)
[2016-05-13 10:20] LABS: HEMATOCRIT 28.6 % (40.0-51.0); HEMOGLOBIN 9.8 g/dL (13.6-17.8)
[2016-05-13 13:32] LABS: INTERNATIONAL NORMAL RATI 1.8 UNITS (-)
[2016-05-13 13:35] LABS: ALBUMIN 2.7 G/DL (3.5-5.0); CALCIUM, SERUM 7.6 MG/DL (8.5-10.4); CHLORIDE, SERUM 110 MMOL/L (96-112); CO2 (CARBON DIOXIDE) 20 MMOL/L (24-34); CREATININE 2.36 MG/DL (0.70-1.30); GFR AFRICAN AMERICAN 36 ML/MIN (>=60); GFR NON AFRICAN AMERICAN 31 ML/MIN (>=60); GLUCOSE, SERUM 130 MG/DL (60-99); PHOSPHORUS, SERUM 4.7 MG/DL (2.5-4.5); POTASSIUM, SERUM 4.4 MMOL/L (3.5-5.3); SODIUM, SERUM 148 MMOL/L (135-148)
[2016-05-13 13:36] LABS: BUN (BLOOD UREA NITROGEN) 28 MG/DL (6-23)
[2016-05-13 13:42] LABS: D-DIMER QUANTITATIVE 3.77 ug/mLFEU (< 0.50)
[2016-05-13 13:59] LABS: WBC (NOT ORDERED) (RFLEX) 0 (0-5)
[2016-05-13 14:26] LABS: ASCORBIC ACID (UR NOT ORDER) NEG (NEG); BILIRUBIN, URINE NEGATIVE (NEG); KETONE, URINE NEGATIVE (NEG); LEUKOCYTE ESTERASE(NOT OR NEG (NEG)
[2016-05-13 14:33] LABS: PROCALCITONIN 8.07 ng/mL (<0.5)
[2016-05-13 16:37] LABS: HEMATOCRIT 26.6 % (40.0-51.0); HEMOGLOBIN 9.2 g/dL (13.6-17.8)
[2016-05-13 19:52] LABS: BUN (BLOOD UREA NITROGEN) 29 MG/DL (6-23); CHLORIDE, SERUM 109 MMOL/L (96-112); CO2 (CARBON DIOXIDE) 19 MMOL/L (24-34); CREATININE 2.32 MG/DL (0.70-1.30); GFR AFRICAN AMERICAN 37 ML/MIN (>=60); GFR NON AFRICAN AMERICAN 32 ML/MIN (>=60); GLUCOSE, SERUM 131 MG/DL (60-99); POTASSIUM, SERUM 4.5 MMOL/L (3.5-5.3); SODIUM, SERUM 147 MMOL/L (135-148)
[2016-05-13 20:39] LABS: BASOPHILS 0.3 %; BASOPHILS ABSOLUTE 0.04 10/3/uL (0.0-0.16); EOSINOPHILS 0.2 %; EOSINOPHILS ABSOLUTE 0.03 10/3/uL (0.0-0.53); HEMATOCRIT 25.9 % (40.0-51.0); HEMOGLOBIN 8.9 g/dL (13.6-17.8); IMMATURE GRANULOCYTES 0.4 %; IMMATURE GRANULOCYTES ABSOLUTE 0.06 10/3/uL (0.0-0.11); LYMPHOCYTES 21.1 %; LYMPHOCYTES ABSOLUTE 3.31 10/3/uL (0.67-4.30); MEAN CORPUS HGB CONC 34.4 g/dL (32.0-36.0); MEAN CORPUSCULAR HEMOGLOB 29.2 pg (26.0-34.0); MEAN CORPUSCULAR VOLUME 84.9 fL (80-100); MEAN PLATELET VOLUME 9.9 fL (9.2-13.0); MONOCYTES 11.6 %; MONOCYTES ABSOLUTE 1.82 10/3/uL (0.21-1.20); NEUTROPHILS 66.4 %; NEUTROPHILS ABSOLUTE 10.42 10/3/uL (2.02-8.40); PLATELET COUNT 217 10/3/uL (150-400); RED CELL COUNT 3.05 10/6/uL (4.7-6.1); WHITE BLOOD CELLS 15.7 10/3/uL (4.5-10.5)
[2016-05-13 20:48] LABS: MANUAL DIFF NO %
[2016-05-13 22:44] LABS: BUN (BLOOD UREA NITROGEN) 27 MG/DL (6-23); CHLORIDE, SERUM 107 MMOL/L (96-112); CO2 (CARBON DIOXIDE) 19 MMOL/L (24-34); CREATININE 2.38 MG/DL (0.70-1.30); GFR AFRICAN AMERICAN 35 ML/MIN (>=60); GFR NON AFRICAN AMERICAN 31 ML/MIN (>=60); GLUCOSE, SERUM 146 MG/DL (60-99); SODIUM, SERUM 146 MMOL/L (135-148)
[2016-05-13 22:45] LABS: POTASSIUM, SERUM 4.5 MMOL/L (3.5-5.3)
[2016-05-13 22:46] LABS: BASOPHILS 0.3 %; BASOPHILS ABSOLUTE 0.04 10/3/uL (0.0-0.16); EOSINOPHILS 0.2 %; EOSINOPHILS ABSOLUTE 0.03 10/3/uL (0.0-0.53); HEMATOCRIT 26.6 % (40.0-51.0); HEMOGLOBIN 9.1 g/dL (13.6-17.8); IMMATURE GRANULOCYTES 0.4 %; IMMATURE GRANULOCYTES ABSOLUTE 0.05 10/3/uL (0.0-0.11); LYMPHOCYTES 16.8 %; LYMPHOCYTES ABSOLUTE 2.28 10/3/uL (0.67-4.30); MEAN CORPUS HGB CONC 34.2 g/dL (32.0-36.0); MEAN CORPUSCULAR HEMOGLOB 29.2 pg (26.0-34.0); MEAN CORPUSCULAR VOLUME 85.3 fL (80-100); MEAN PLATELET VOLUME 10.1 fL (9.2-13.0); MONOCYTES 11.3 %; MONOCYTES ABSOLUTE 1.53 10/3/uL (0.21-1.20); NEUTROPHILS ABSOLUTE 9.64 10/3/uL (2.02-8.40); PLATELET COUNT 216 10/3/uL (150-400); RBC DISTRIBUTION WIDTH 16.1 % (12.0-16.0); RED CELL COUNT 3.12 10/6/uL (4.7-6.1); WHITE BLOOD CELLS 13.6 10/3/uL (4.5-10.5)
[2016-05-13 22:48] LABS: MANUAL DIFF NO %
[2016-05-14 00:04] LABS: BAND NEUTROPHILS 10 %; EOSINOPHILS 1 %; EOSINOPHILS ABSOLUTE (CALC) 0.14 10/3/uL (0.0-0.53); LYMPHOCYTES 7 %; LYMPHOCYTES ABSOLUTE (CALC) 0.95 10/3/uL (0.67-4.30); MONOCYTES 1 %; MONOCYTES ABSOLUTE (CALC) 0.14 10/3/uL (0.21-1.20); NEUTROPHILS ABSOLUTE (CALC) 12.38 10/3/uL (2.02-8.40); SEGMENTED NEUTROPHIL (0) 81 %; TOTAL NUCLEATED CELLS 100
[2016-05-14 00:05] LABS: ANISOCYTOSIS 1+ (5-10/OIF) (0-5/OIF); PLATELET ESTIMATE ADQ (ADEQUATE); POIKILOCYTOSIS 1+ (5-10/OIF) (0-5/OIF); TEARDROP SHAPED RBCS FEW (3-10/OIF)
[2016-05-14 01:09] LABS: BE (BASE EXCESS) -10.6 MEQ/L (0 +/- 2.5); CARBOXYHEMOGLOBIN 0.2 % (0-3); HCO3 (ACTUAL BICARBONATE) 15.6 MEQ/L (23-27); HEMOBLOGIN CONTENT 9.3 G/DL (14-18); INSTRUMENT SERIAL # 35151; METHEMOGLOBIN 0.8 % (0-3); O2 CONTENT 11.8 VOL% (18-24); OPERATOR ID 33214; PCO2 (CO2 TENSION) 36 MMHG (35-45); PO2 (O2 TENSION) 70 MMHG (79-93); SAMPLE Arterial; TIDAL VOLUME 500 ML; pH 7.26 (7.37-7.43)
[2016-05-14 03:37] LABS: BE (BASE EXCESS) -11.5 MEQ/L (0 +/- 2.5); CARBOXYHEMOGLOBIN 0.3 % (0-3); HCO3 (ACTUAL BICARBONATE) 15.5 MEQ/L (23-27); HEMOBLOGIN CONTENT 9.4 G/DL (14-18); INSTRUMENT SERIAL # 35151; METHEMOGLOBIN 0.8 % (0-3); MODE CMV; O2 CONTENT 12.9 VOL% (18-24); OPERATOR ID 13861; PCO2 (CO2 TENSION) 39 MMHG (35-45); PO2 (O2 TENSION) 118 MMHG (79-93); SAMPLE Arterial; TIDAL VOLUME 400 ML; pH 7.21 (7.37-7.43)
[2016-05-14 03:59] LABS: HEMATOCRIT 26.4 % (40.0-51.0); HEMOGLOBIN 8.5 g/dL (13.6-17.8); MANUAL DIFF YES %; MEAN CORPUS HGB CONC 32.2 g/dL (32.0-36.0); MEAN CORPUSCULAR VOLUME 86.8 fL (80-100); NUCLEATED RED BLOOD CELLS 0.7 /100WBC (0-0); PLATELET COUNT 229 10/3/uL (150-400); RBC DISTRIBUTION WIDTH 16.3 % (12.0-16.0); RED CELL COUNT 3.04 10/6/uL (4.7-6.1); WHITE BLOOD CELLS 11.5 10/3/uL (4.5-10.5)
[2016-05-14 04:23] LABS: BUN (BLOOD UREA NITROGEN) 26 MG/DL (6-23); CALCIUM, SERUM 7.2 MG/DL (8.5-10.4); CHLORIDE, SERUM 104 MMOL/L (96-112); CO2 (CARBON DIOXIDE) 17 MMOL/L (24-34); GLUCOSE, SERUM 134 MG/DL (60-99); PHOSPHORUS, SERUM 5.2 MG/DL (2.5-4.5); SGPT(ALT) 3406 U/L (5-65); SODIUM, SERUM 145 MMOL/L (135-148); TOTAL BILIRUBIN 6.1 MG/DL (0-1.2)
[2016-05-14 04:25] LABS: ALKALINE PHOSPHATASE 589 U/L (45-117); CREATININE 2.88 MG/DL (0.70-1.30); GFR AFRICAN AMERICAN 28 ML/MIN (>=60); GFR NON AFRICAN AMERICAN 24 ML/MIN (>=60); INDIRECT BILIRUBIN(NOT ORDER) 2.1 MG/DL (0.1-0.9); POTASSIUM, SERUM 4.7 MMOL/L (3.5-5.3); SGOT(AST) 6578 U/L (5-40)
[2016-05-14 04:31] LABS: BAND NEUTROPHILS 23 %; EOSINOPHILS 1 %; EOSINOPHILS ABSOLUTE (CALC) 0.12 10/3/uL (0.0-0.53); LYMPHOCYTES 2 %; LYMPHOCYTES ABSOLUTE (CALC) 0.23 10/3/uL (0.67-4.30); MONOCYTES 2 %; MONOCYTES ABSOLUTE (CALC) 0.23 10/3/uL (0.21-1.20); NEUTROPHILS ABSOLUTE (CALC) 10.93 10/3/uL (2.02-8.40); SEGMENTED NEUTROPHIL (0) 72 %; TOTAL NUCLEATED CELLS 100
[2016-05-14 04:33] LABS: PLATELET ESTIMATE ADQ (ADEQUATE); POIKILOCYTOSIS 1+ (5-10/OIF) (0-5/OIF); POLYCHROMASIA 1+ (2-5/OIF) (0-1/OIF); TEARDROP SHAPED RBCS FEW (3-10/OIF)
[2016-05-14 05:12] LABS: BE (BASE EXCESS) -7.4 MEQ/L (0 +/- 2.5); CARBOXYHEMOGLOBIN 0.3 % (0-3); HCO3 (ACTUAL BICARBONATE) 20.1 MEQ/L (23-27); HEMOBLOGIN CONTENT 9.3 G/DL (14-18); INSTRUMENT SERIAL # 35151; METHEMOGLOBIN 0.8 % (0-3); MODE CMV; OPERATOR ID 31061; PCO2 (CO2 TENSION) 50 MMHG (35-45); PO2 (O2 TENSION) 158 MMHG (79-93); SAMPLE Arterial; TIDAL VOLUME 400 ML; pH 7.22 (7.37-7.43)
[2016-05-14 10:03] LABS: BE (BASE EXCESS) -14.7 MEQ/L (0 +/- 2.5); CARBOXYHEMOGLOBIN 0.2 % (0-3); HCO3 (ACTUAL BICARBONATE) 15.6 MEQ/L (23-27); HEMOBLOGIN CONTENT 9.4 G/DL (14-18); INSTRUMENT SERIAL # 35151; METHEMOGLOBIN 0.9 % (0-3); MODE CMV; O2 CONTENT 13.2 VOL% (18-24); PCO2 (CO2 TENSION) 60 MMHG (35-45); PO2 (O2 TENSION) 183 MMHG (79-93); SAMPLE Arterial; TIDAL VOLUME 400 ML; pH 7.03 (7.37-7.43)
[2016-05-14 10:33] LABS: HEMATOCRIT 25.3 % (40.0-51.0); HEMOGLOBIN 8.2 g/dL (13.6-17.8)
[2016-05-14 11:12] LABS: BASOPHILS 0.1 %; BASOPHILS ABSOLUTE 0.02 10/3/uL (0.0-0.16); EOSINOPHILS 0 %; IMMATURE GRANULOCYTES 0.3 %; IMMATURE GRANULOCYTES ABSOLUTE 0.05 10/3/uL (0.0-0.11); LYMPHOCYTES 6.5 %; LYMPHOCYTES ABSOLUTE 1.12 10/3/uL (0.67-4.30); MONOCYTES 9.8 %; NEUTROPHILS 83.3 %; NEUTROPHILS ABSOLUTE 14.37 10/3/uL (2.02-8.40); NUCLEATED RED BLOOD CELLS 1.3 /100WBC (0-0); PLATELET COUNT 240 10/3/uL (150-400); RBC DISTRIBUTION WIDTH 16.7 % (12.0-16.0); RED CELL COUNT 2.86 10/6/uL (4.7-6.1)
[2016-05-14 11:13] LABS: MANUAL DIFF NO %; MEAN CORPUSCULAR VOLUME 90.6 fL (80-100); WHITE BLOOD CELLS 17.3 10/3/uL (4.5-10.5)
[2016-05-14 11:15] LABS: BUN (BLOOD UREA NITROGEN) 25 MG/DL (6-23); CALCIUM, SERUM 6.5 MG/DL (8.5-10.4); CHLORIDE, SERUM 102 MMOL/L (96-112); CO2 (CARBON DIOXIDE) 23 MMOL/L (24-34); CREATININE 3.18 MG/DL (0.70-1.30); GFR AFRICAN AMERICAN 25 ML/MIN (>=60); GFR NON AFRICAN AMERICAN 22 ML/MIN (>=60); GLUCOSE, SERUM 106 MG/DL (60-99); POTASSIUM, SERUM 4.7 MMOL/L (3.5-5.3); SODIUM, SERUM 148 MMOL/L (135-148)
[2016-05-14 11:16] LABS: PHOSPHORUS, SERUM 6.5 MG/DL (2.5-4.5)
[2016-05-14 13:45] LABS: BE (BASE EXCESS) -18.6 MEQ/L (0 +/- 2.5); CARBOXYHEMOGLOBIN 0.3 % (0-3); HCO3 (ACTUAL BICARBONATE) 14.8 MEQ/L (23-27); INSTRUMENT SERIAL # 35151; MODE CMV; O2 CONTENT 12.9 VOL% (18-24); OPERATOR ID 11657; PCO2 (CO2 TENSION) 87 MMHG (35-45); PO2 (O2 TENSION) 231 MMHG (79-93); SAMPLE Arterial; TIDAL VOLUME 400 ML; pH 6.85 (7.37-7.43)
[2016-05-14 18:48] LABS: HEMATOCRIT 27.2 % (40.0-51.0); HEMOGLOBIN 8.3 g/dL (13.6-17.8); MEAN CORPUS HGB CONC 30.5 g/dL (32.0-36.0); MEAN CORPUSCULAR HEMOGLOB 28.9 pg (26.0-34.0); MEAN PLATELET VOLUME 10.3 fL (9.2-13.0); NUCLEATED RED BLOOD CELLS 2.4 /100WBC (0-0); PLATELET COUNT 265 10/3/uL (150-400); RBC DISTRIBUTION WIDTH 16.8 % (12.0-16.0); RED CELL COUNT 2.87 10/6/uL (4.7-6.1); WHITE BLOOD CELLS 13.1 10/3/uL (4.5-10.5)
[2016-05-14 18:49] LABS: BUN (BLOOD UREA NITROGEN) 26 MG/DL (6-23); CHLORIDE, SERUM 104 MMOL/L (96-112); CO2 (CARBON DIOXIDE) 13 MMOL/L (24-34); CREATININE 4.03 MG/DL (0.70-1.30); GFR AFRICAN AMERICAN 19 ML/MIN (>=60); GFR NON AFRICAN AMERICAN 16 ML/MIN (>=60); GLUCOSE, SERUM 83 MG/DL (60-99); MANUAL DIFF YES %; MEAN CORPUSCULAR VOLUME 94.8 fL (80-100); POTASSIUM, SERUM 5.9 MMOL/L (3.5-5.3); SODIUM, SERUM 145 MMOL/L (135-148)
[2016-05-14 18:50] LABS: CALCIUM, SERUM 6.8 MG/DL (8.5-10.4)
[2016-05-14 19:06] LABS: BAND NEUTROPHILS 19 %; LYMPHOCYTES 6 %; LYMPHOCYTES ABSOLUTE (CALC) 0.79 10/3/uL (0.67-4.30); MONOCYTES 6 %; MONOCYTES ABSOLUTE (CALC) 0.79 10/3/uL (0.21-1.20); NEUTROPHILS ABSOLUTE (CALC) 11.53 10/3/uL (2.02-8.40); SEGMENTED NEUTROPHIL (0) 69 %; TOTAL NUCLEATED CELLS 100
[2016-05-14 19:07] LABS: GIANT PLATELET OCC; PLATELET ESTIMATE ADQ (ADEQUATE); POLYCHROMASIA 1+ (2-5/OIF) (0-1/OIF)
[2016-05-14 19:09] LABS: ANISOCYTOSIS 1+ (5-10/OIF) (0-5/OIF); HYPOCHROMIA 1+ (3-10/OIF) (0-2/OIF)
[2016-05-14 19:11] LABS: BURR CELLS 1+ (3-10/OIF) (0-2/OIF)
== END 2016-05-14 23:40 | disposition expired | DRG 987 ==
LOC: CORLMH 07:49 → SSU2 07:52 → SSU1 08:57 → CCU 15:46
PROVIDERS: Emergency Medicine; Internal Medicine; Internal Medicine Cardiovascular Disease; Internal Medicine Critical Care Medicine; Internal Medicine Pulmonary Disease
DX: C25.0 Malignant neoplasm of head of pancreas (principal); N17.0 Acute kidney failure with tubular necrosis; I49.01 Ventricular fibrillation; J96.01 Acute respiratory failure with hypoxia; K72.00 Acute and subacute hepatic failure without coma; D62 Acute posthemorrhagic anemia; I77.2 Rupture of artery; K92.2 Gastrointestinal hemorrhage, unspecified; K31.6 Fistula of stomach and duodenum; E87.2 Acidosis; E87.70 Fluid overload, unspecified; M75.102 Unspecified rotator cuff tear or rupture of left shoulder, not specified as traumatic; I10 Essential (primary) hypertension; R57.8 Other shock; M23.206 Derangement of unspecified meniscus due to old tear or injury, right knee; M71.21 Synovial cyst of popliteal space [Baker], right knee; I46.9 Cardiac arrest, cause unspecified; E78.5 Hyperlipidemia, unspecified; K76.0 Fatty (change of) liver, not elsewhere classified; N28.1 Cyst of kidney, acquired; E66.9 Obesity, unspecified; G47.33 Obstructive sleep apnea (adult) (pediatric); E86.1 Hypovolemia; E78.00 Pure hypercholesterolemia, unspecified; E87.5 Hyperkalemia; Z66 Do not resuscitate; G40.909 Epilepsy, unspecified, not intractable, without status epilepticus; Z83.3 Family history of diabetes mellitus; Z99.81 Dependence on supplemental oxygen; Z82.49 Family history of ischemic heart disease and other diseases of the circulatory system; Z86.73 Personal history of transient ischemic attack (TIA), and cerebral infarction without residual deficits; Z86.718 Personal history of other venous thrombosis and embolism
CPT/HCPCS: 31720; 36245; 36246; 36247; 36415; 36556; 36569; 36597; 37244; 71010; 73030-LT; 74000; 74176; 75726; 75774; 76705; 80048; 80053; 80069; 80074; 80076; 80202; 80307; 81001; 82043; 82150; 82247; 82248; 82272; 82330; 82533; 82550; 82553; 82570; 82803; 82805; 82947; 82962; 83605; 83690; 83735; 83930; 83935; 84100; 84132; 84133; 84145; 84295; 84300; 84443; 84484; 85014; 85018; 85025; 85049; 85379; 85384; 85610; 85730; 86301; 86850; 86900; 86901; 86920; 87040; 87070; 87205; 87389; 87641; 92950; 93005; 93458; 93970; 93975; 94002; 94003; 94640; 94770; 99152; 99153; 99285; A9270-GY; C1751; C1760; C1769; C1887; C1894; C9113; J0330; J0456; J0583; J0610; J1170; J1610; J1720; J2185; J2250; J2370; J2405; J2543; J2550; J2765; J3010; J3370; P9016; P9035; P9045; P9047; P9059; Q9967